=== PATIENT | female | born 1990 | race Caucasian/White ===

== ENCOUNTER 2018-07-18 20:38 | Emergency (ER) | payer MEDICAID ==
[~2018-07-18] VITALS: Ht 165.1 cm; Wt 91.4 kg
--- NOTE | 2018-07-18 20:55 | NUR ---
PT HERE STATING THAT SHE HAS NOT HAD A PERIOD FOR "MONTHS AND MONTHS" BELIEVES MAYBE . BEGAN HAVING SPOTTING FOR LAST TWO DAYS, BROWNISH AND TODAY HAVING LOWER ABD PAIN/CRAMPING. G 0 P 0 A 0. REPORTS FATIGUE. REPORTS POTENTIAL . VSS
--- NOTE | 2018-07-18 21:01 | NUR ---
BS report of pt from CHARBEL Ramos and assuming care of pt. Pt ambulates with steady gait to restroom to void. pt attached to VS machines. VSS at this time.
[2018-07-18 21:39] LABS: MICROSCOPIC AUTO
[2018-07-18 21:40] LABS: CULTURE INDICATED? YES
[2018-07-18 21:45] LABS: BASOPHILS # (AUTO) 0.12 x10^3/uL (0-0.1); BASOPHILS % (AUTO) 1 % (0-1); EOSINOPHILS # (AUTO) 0.15 x10^3/uL (0-0.4); EOSINOPHILS % (AUTO) 1 % (1-7); LYMPHOCYTES # (AUTO) 4.23 x10^3/uL (1-3.4); LYMPHOCYTES % (AUTO) 38 % (22-44); MD NO; MEAN CORPUSCULAR HEMOGLOBIN 29.7 pg (27.0-34.8); MEAN CORPUSCULAR HGB CONC 34.3 g/dL (32.4-35.8); MEAN CORPUSCULAR VOLUME 86.6 fL (80-100); MEAN PLATELET VOLUME 9.2 fL (7.4-10.4); MONOCYTES # (AUTO) 0.73 x10^3/uL (0.2-0.8); MONOCYTES % (AUTO) 7 % (2-9); NEUTROPHILS # (AUTO) 5.91 x10^3/uL (1.8-6.8); NEUTROPHILS % (AUTO) 53 % (42-75); PLATELET COUNT 286 x10^3/uL (130-400); RED BLOOD COUNT 4.84 x10^6/uL (3.82-5.3)
[2018-07-18] MEDS ORDERED: ONDANSETRON ODT 4 MG ONE (21:57)
[2018-07-18] MEDS ORDERED: CIPROFLOXACIN 500 MG TABLET ONE (21:57)
[2018-07-18] MEDS ORDERED: IBUPROFEN 600 MG TABLET ONE (21:57)
[2018-07-18] MEDS ORDERED: IBUPROFEN 600 MG TABLET PO ONE (22:00)
[2018-07-18] MEDS ORDERED: CIPROFLOXACIN 500 MG TABLET PO ONE (22:00)
[2018-07-18] MEDS ORDERED: ONDANSETRON ODT 4 MG PO ONE (22:00)
[2018-07-18 22:01] LABS: ALBUMIN 4.1 g/dL (3.4-5.0); ANION GAP 6 mmol/L (5-15); CHLORIDE 108 mmol/L (98-107)
--- NOTE | 2018-07-18 22:04 | NUR ---
PT MEDICATED PER MAR.
[2018-07-18 22:05] LABS: ALANINE AMINOTRANSFERASE 24 U/L (12-78); ALKALINE PHOSPHATASE 70 U/L (45-117); BILIRUBIN,TOTAL 0.8 mg/dL (0.2-1.0); CREATININE 0.69 mg/dL (0.55-1.02); TOTAL PROTEIN 7.3 g/dL (6.4-8.2)
--- NOTE | 2018-07-18 22:17 | NUR ---
PT MEDICATED PER JUN. PT D/C WITH D/C SUMMARY AND SCRIPTS AND REFERRALS TO OP CLINICS FOR PCP REQUEST. PT VERBALIZES UNDERSTANDING OF SCRIPT USE AND LOCATION OF PHARMACY. PT VSS AND UPDATED IN EMR. PT CALLING FRIEND FOR [facility], AND AMBULATES TO REGISTRATION DESK WITH STEADY GAIT. PT QUESTIONS ANSWERED AND PT DENIES ANY OTHER NEEDS PERTAINING TO THIS VISIT.
[2018-07-18 22:19] VITALS: BP 117/93
== END 2018-07-18 22:21 | disposition home or self-care (01) ==
LOC: ED 22:17
DX: N30.00 Acute cystitis without hematuria (principal)
CPT/HCPCS: 36415; 80053; 81001; 81025; 83690; 85025; 87077; 87086; 87186; 99284; Q0162